=== PATIENT | female | born 1955 | race Caucasian/White ===

== ENCOUNTER → 2017-04-30 | Outpatient (CLI) | payer BC ==
--- NOTE | 2017-05-01 19:33 | Diagnostic Imaging Report ---
Bilateral screening mammogram 2D views with tomosynthesis The current study was also evaluated with a Computer Aided Detection (CAD) system. Indication: Screening. No current complaints stated on the questionnaire. COMPARISON: 05/02/16 FINDINGS: The breasts are composed of scattered fibroglandular densities. There are occasional benign-appearing calcifications seen. Allowing for technique and positional differences, no suspicious change is seen. IMPRESSION: No significant change. ACR BI-RADS Category 2: Benign findings. Result letter will be mailed to the patient. Note: At least 10% of breast cancer is not imaged by mammography. Dictated by: Dictated on workstation # [id number]
== END ==
LOC: RAD 09:38
PROVIDERS: ATTEND Nurse Practitioner
DX: Z12.31 Encounter for screening mammogram for malignant neoplasm of breast (principal)
CPT/HCPCS: 77067

== ENCOUNTER → 2018-05-31 | Outpatient (CLI) | payer BC ==
--- NOTE | 2018-05-31 16:21 | Diagnostic Imaging Report ---
EXAMINATION: Digital mammogram bilateral screening with CAD and 3D tomosynthesis. INDICATION: Screening. COMPARISON: This study is compared to the prior exams of 04/30/2017, 05/02/2016, and 04/01/2015. PERSONAL HISTORY: At this time, there are no current complaints. FINDINGS: There is a mild amount of fibroglandular tissue present in both breasts, similar to the prior exam. No primary or secondary sign of malignancy is noted. IMPRESSION: There is no radiographic evidence for malignancy. ACR BI-RADS Category 1: Negative. Result letter will be mailed to the patient. Note: At least 10% of breast cancer is not imaged by mammography. Dictated by: Dictated on workstation # [id number]
== END ==
LOC: RAD 07:41
PROVIDERS: ATTEND Nurse Practitioner
DX: Z12.31 Encounter for screening mammogram for malignant neoplasm of breast (principal)
CPT/HCPCS: 77067

== ENCOUNTER → 2019-06-02 | Outpatient (CLI) | payer BC ==
--- NOTE | 2019-06-02 10:24 | Diagnostic Imaging Report ---
INDICATION: Routine screening. COMPARISON: 05/31/2018 and 04/30/2017. TECHNIQUE: 2D and 3D bilateral screening mammography was performed with CAD. FINDINGS: Scattered fibroglandular densities are identified bilaterally. A circumscribed density in the upper right breast at anterior depth is noted with peripheral calcification. This has the appearance of an oil cyst. The left breast is unremarkable. No spiculated mass or malignant appearing microcalcifications are seen. The axillae are unremarkable. IMPRESSION: No mammographic features suspicious for malignancy are identified. ACR BI-RADS Category 2: Benign findings. Result letter will be mailed to the patient. Note: At least 10% of breast cancer is not imaged by mammography. Dictated by: Dictated on workstation # [id number]
== END ==
LOC: RAD 09:00
PROVIDERS: ATTEND Nurse Practitioner
DX: Z12.31 Encounter for screening mammogram for malignant neoplasm of breast (principal)
CPT/HCPCS: 77067

== ENCOUNTER 2020-02-23 14:48 | Outpatient (RCR) | payer BC ==
[2020-03-11] MEDS ORDERED: CETI10CA PO (07:58)
[2020-03-11] MEDS ORDERED: ESCI5TAB PO (07:58)
[2020-03-11] MEDS ORDERED: HYDR25TA4 PO (07:58)
[2020-03-11] MEDS ORDERED: ESTR1TAB24 PO (07:58)
[2020-03-11] MEDS ORDERED: LISI-556 PO (07:58)
[2020-03-11] MEDS ORDERED: APIX5TAB PO (07:58)
[2020-03-11] MEDS ORDERED: PANT40TA52 PO (07:58)
[2020-03-11] MEDS ORDERED: POTA10CA43 PO (07:58)
[2020-03-11] MEDS ORDERED: MAGN400T29 PO (07:58)
[2020-04-02] MEDS ORDERED: ESCI10TA55 PO (07:27)
== END 2020-05-23 | disposition home or self-care (01) ==
LOC: CARD 14:48
PROVIDERS: ATTEND Internal Medicine Interventional Cardiology
DX: I08.2 Rheumatic disorders of both aortic and tricuspid valves (principal); I10 Essential (primary) hypertension
CPT/HCPCS: 93306

== ENCOUNTER → 2020-03-04 | Outpatient (CLI) | payer BC ==
[~2020-03-04] VITALS: Ht 165 cm; Wt 92.0 kg
[~2020-03-04] MED LIST: CATHETER FLUSH 10 ML SYR IV PRN; REGADENOSON 0.4 MG/5 ML SYR (LEXISCAN) IV ONE
[2020-03-06 14:05] VITALS: BP 150/76
--- NOTE | 2020-03-06 14:05 | Cardiology Stress Test Report ---
Stress Test Report Type of NM Stress Test: Test Type: LEXISCAN 0.4MG/5ML Date of Procedure/Referring: Date of Procedure: Mar 04, 2020 PCP Shane Redman MD Admitting Physician Jane Renner MD Indications: Chest heaviness, syncope. Baseline Heart Rate: 61 Baseline Blood Pressure: Blood Pressure Systolic: 150 Blood Pressure Diastolic: 76 Baseline EKG: Baseline EKG: sinus rhythm Summary & Conclusion: Summary: The patient was brought to the stress lab after informed consent was taken. Stress test was performed according to the Lexiscan protocol. 0.4 mg of IV Lexiscan was given. Low-grade exercise was performed. Baseline EKG showed sinus rhythm at 61 BPM. Blood pressure 150/76 mmHg. Maximum heart rate of 69 bpm and blood pressure 162/78 mmHg. Patient did not have any chest pain, arrhythmias or ST segment changes during the stress test. 10.44 mCi of Myoview were given for rest imaging and 30.2 mCi of Myoview given for stress imaging. Transient ischemic dilatation score 1.05 , EF 76 percent. Normal wall motion. Moderate reversible anterior defect. Conclusion: Pharmacological stress test was negative for ischemia. Normal LV function with no wall motion abnormalities. Possible anterior ischemia. coronary angiography is recommended Shane REDMAN MD Mar 06, 2020 14:05
== END ==
LOC: CARD 07:39
PROVIDERS: ATTEND Internal Medicine Interventional Cardiology
DX: I10 Essential (primary) hypertension (principal)
CPT/HCPCS: 78452; 93017; A9502

== ENCOUNTER 2020-03-11 06:57 | Day surgery (SDC) | payer BC ==
[2020-03-11] VITALS (12 sets, daily range): BP systolic 93–156; BP diastolic 50–109
[~2020-03-11] VITALS: Ht 166 cm; Wt 92.0 kg
--- OUTSIDE RECORDS SUMMARY | 2020-03-11 07:03 | XMS REPORT | Continuity of Care Document ---
Author Organization Unknown Address Unknown Phone Unavailable Allergies Active Description Code Type Severity Reaction Onset Reported/Identified Relationship to Patient Clinical Status Yes NO KNOWN DRUG ALLERGIES UNKNOWN NO KNOWN DRUG ALLERG Yes NO KNOWN DRUG ALLERGIES UNKNOWN UNKNOWN Yes No Known Drug Allergies [id number] Drug Allergy Unknown N/A 03/04/2020 Medications Medication Packaging Start Date St op Date Route Dosage Sig MAGNESIUM OXIDE TAB 400 MG (MAG-OX) MG 10/13/2017 10/19/2017 [id number] LACTATED RINGERS 1000CC IV BAG INJ ml 10/15/2017 10/22/2017 CONTINUOUSEVERY 0 Hour ONDANSETRON VIAL INJ 4 MG/2CC (ZOFRAN 2CC VIAL) MG 08/11/2018 08/11/2018 PRN ONCE NORMAL SALINE 1000CC IV BAG INJ 0.9 % (NS 1000CC IV BAG) ml 08/11/2018 08/26/2018 CONTINUOUSEVERY 0 Hour POTASSIUM CL 20MEQ VIAL INJ 20 MEQ/10CC (KCL VIAL) MEQ 08/11/2018 08/11/2018 ONCE&0218 POTASSIUM CL 20MEQ VIAL INJ 20 MEQ/10CC (KCL VIAL) MEQ 08/11/2018 08/11/2018 ONCE&0253 POTASSIUM CHLORIDE TAB 20 MEQ (K-DUR) MEQ 08/11/2018 08/11/2018 ONCE&0305 Problems Date Dx Coded Attending Type Code Diagnosis Diagnosed By 04/05/2015 DANNIELLE EWING Ot V76.1 2 04/29/2015 DANNIELLE EWING Ot V76.1 2 05/02/2016 Ot V76.12 OTH SCREEN MAMMO- MALIGN NEOPLASM OF HERIBERTO 05/02/2016 Ot 793.80 UNS PEC ABNORMAL MAMMOGRAM 05/02/2016 Ot V76.12 OTH SCREEN MAMMO- MALIGN NEOPLASM OF HER[place]ERTO 05/02/2016 Ot 793.80 UNS PEC ABNORMAL MAMMOGRAM 05/02/2016 DANNIELLE EWING Ot V76.1 2 OTH SCREEN MAMMO-MALIGN NEOPLASM OF HERIBERTO 05/02/2016 DANNIELLE EWING GOLD BEATER Ot V76.1 2 OTH SCREEN MAMMO-MALIGN NEOPLASM OF [place]IBERTO 05/02/2016 DANNIELLE EWING GOLD BEATER Ot V76.1 2 OTH SCREEN MAMMO-MALIGN NEOPLASM OF HERIBERTO 05/02/2016 DANNIELLE EWING GOLD BEATER Ot Z12.3 1 ENCNTR SCREEN MAMMOGRAM FOR MALIGNANT NE 05/03/2016 DANNIELLE EWING GOLD BEATER Ot Z12.3 1 ENCNTR SCREEN MAMMOGRAM FOR MALIGNANT NE 05/10/2016 DANNIELLE EWING GOLD BEATER Ot Z12.3 1 ENCNTR SCREEN MAMMOGRAM FOR MALIGNANT NE 04/30/2017 Ot 793.80 UNS PEC ABNORMAL MAMMOGRAM 04/30/2017 Ot V76.12 OTH SCREEN MAMMO- MALIGN NEOPLASM OF [place]IBERTO 04/30/2017 Ot 793.80 UNS PEC ABNORMAL MAMMOGRAM 04/30/2017 DANNIELLE EWING GOLD BEATER Ot V76.1 2 OTH SCREEN MAMMO-MALIGN NEOPLASM OF [place]IBERTO 04/30/2017 DANNIELLE EWING GOLD BEATER Ot V76.1 2 OTH SCREEN MAMMO-MALIGN NEOPLASM OF HERIBERTO 04/30/2017 DANNIELLE EWING GOLD BEATER Ot V76.1 2 OTH SCREEN MAMMO-MALIGN NEOPLASM OF [place]O 04/30/2017 DANNIELLE EWING GOLD BEATER Ot Z12.3 1 ENCNTR SCREEN MAMMOGRAM FOR MALIGNANT NE 05/10/2017 DANNIELLE EWING GOLD BEATER Ot Z12.3 1 ENCNTR SCREEN MAMMOGRAM FOR MALIGNANT NE 09/26/2017 A 401.1 LISSETTE GN ESSENTIAL HYPERTENSION 09/26/2017 W 709.9 UNSP ECIFIED DISORDER OF SKIN AND SUBCUTANEOUS TISSUE 09/26/2017 A I10 ESSENT IAL (PRIMARY) HYPERTENSION 09/26/2017 W L98.9 DISO RDER OF THE SKIN AND SUBCUTANEOUS TISSUE, UNSPECIFIED 10/15/2017 Dillon Valdez W 455.0 INTERNAL HEMORRHOIDS WITHOUT MENTION OF COMPLICATION 10/15/2017 Dillon Valdez A 530.81 10/15/2017 Dillon Valdez W 535.10 10/15/2017 Dillon Valdez W 552.3 10/15/2017 Dillon Valdez W 562.12 DIVERTICULOSIS OF COLON WITH HEMORRHAGE 10/15/2017 Dillon Valdez 697.0 LICHEN PLANUS 10/15/2017 Dillon Valdez K21.0 GASTRO- ESOPHAGEAL REFLUX DISEASE WITH ESOPHAGITIS 10/15/2017 Dillon Valdez K29.30 CHRONIC SUPERFICIAL GASTRITIS WITHOUT BLEEDING 10/15/2017 Dillon Valdez K44.9 DIAPHRAGMATIC HERNIA WITHOUT OBSTRUCTION OR GANGRENE 10/15/2017 Dillon Valdez K57.30 DVRTCLOS OF LG INT W/O PERFORATION OR ABSCESS W/O BLEEDING 10/15/2017 Dillon Valdez K64.1 SECOND DEGREE HEMORRHOIDS 10/15/2017 Dillon Valdez L43.8 OTHER LICHEN PLANUS 10/15/2017 Dillon Valdez V76.51 SCREENING FOR MALIGNANT NEOPLASMS OF COLON 10/15/2017 Dillon Valdez Z12.11 ENCOUNTER FOR SCREENING FOR MALIGNANT NEOPLASM OF COLON 05/09/2018 W 296.90 UNS PECIFIED EPISODIC MOOD DISORDER 05/09/2018 A 401.0 EVELIO GNANT ESSENTIAL HYPERTENSION 05/09/2018 W F39 UNSPEC IFIED MOOD [AFFECTIVE] DISORDER 05/09/2018 A I10 ESSENT IAL (PRIMARY) HYPERTENSION 06/03/2018 DANNIELLE EWING Ot Z12.3 1 ENCNTR SCREEN MAMMOGRAM FOR MALIGNANT NE 06/03/2018 DANNIELLE EWING Ot Z12.3 1 ENCNTR SCREEN MAMMOGRAM FOR MALIGNANT NE 08/11/2018 PRABHJOT BENÍTEZ W 008.8 INTESTINAL INFECTION DUE TO OTHER ORGANISM, NOT ELSEWHERE CLASSIFIED 08/11/2018 LEISURE, PRABHJOT W 780.2 SYNCOPE AND COLLAPSE 08/11/2018 LEISURE, SPARKLEA W 920 CONTUSION OF FACE, SCALP, AND NECK EXCEPT EYE(S) 08/11/2018 LEISURE, PRABHJOT Osorio A08.0 ROTAVIRAL ENTERITIS 08/11/2018 LEISURE, PRABHJOT W R55 SYNCOPE AND COLLAPSE 08/11/2018 LEISURE, PRABHJOT W S00.83 CONTUSION OF OTHER PART OF HEAD 08/11/2018 LEISURE, PRABHJOT A 008.8 INTESTINAL INFECTION DUE TO OTHER ORGANISM, NOT ELSEWHERE CLASSIFIED 08/11/2018 LEISURE, PRABHJOT W 780.2 SYNCOPE AND COLLAPSE 08/11/2018 LEISURE, SPARKLEA W 920 CONTUSION OF FACE, SCALP, AND NECK EXCEPT EYE(S) 08/11/2018 PRABHJOT BENÍTEZ A08.4 VIRAL INTESTINAL INFECTION, UNSPECIFIED 08/11/2018 PRABHJOT BENÍTEZ R55 SYNCOPE AND COLLAPSE 08/11/2018 PRABHJOT BENÍTEZ S00.83 CONTUSION OF OTHER PART OF HEAD 08/11/2018 PRABHJOT BENÍTEZ S00.83 XA CONTUSION OF OTHER PART OF HEAD, INITIAL ENCOUNTER 06/06/2019 DANNIELLE EWING Ot Z12.3 1 ENCNTR SCREEN MAMMOGRAM FOR MALIGNANT NE 06/23/2019 DANNIELLE EWING Ot Z12.3 1 ENCNTR SCREEN MAMMOGRAM FOR MALIGNANT NE 03/02/2020 ANIKA CHICAS, Shane MANLEY Ot 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 Results Test Result Range Thyroid Stimulating Hormone - 04/07/17 0 8:46 TSH 1.79 mIU/mL 0.32-5.00 Comprehensive Metabolic Panel - 10/11/17 13:48 Albumin 3.9 g/dL 3.6-5.1 ALP 87 U/L 35-130 ALT 15 U/L 6-45 Anion Gap 12 6-14 AST 16 U/L 2-40 BUN 15 mg/dL 5-25 Calcium 9.4 mg/dL 8.3-10.4 Chloride 98 mmol/L 95-114 CO2 32 mEq/L 22-33 Creat 0.78 mg/dL 0.50-1.50 eGFR 75 mL/min/1.73m2 >59 Globulin 2.9 g/dL 2.3-3.5 Glucose 97 mg/dL 70-110 Osmo 286 280-295 Potassium 3.5 mmol/L 3.5-5.3 Sodium 138 mmol/L 134-148 TBil 0.4 mg/dL 0.2-1.2 TP 6.8 g/dL 6.0-8.3 MRSA Screen - 10/11/17 13:48 FINAL CULTURE RESULTS MRSA Negative Nasal Culture MEDIA PLATED Setup at 14:21 on 10/11/2017 Surgical Pathology - 10/15/17 11:21 Surg Path Sent to [facility] Hemoglobin A1C - 05/11/18 08:34 % A1C 5.30 % 5.40-6.60 AvGlu 111 mg/dL 70-110 Troponin I - 08/11/18 01:38 Troponin 0.021 ng/mL 0.000-0.400 Magnesium - 08/11/18 01:38 Mg++ 2.1 mg/dL 1.6-2.6 Lipase - 08/11/18 01:38 Lipase 11 U/L 7-59 Comprehensive Metabolic Panel - 08/11/18 01:38 Albumin 4.3 g/dL 3.6-5.1 ALP 62 U/L 35-130 ALT 18 U/L 6-45 Anion Gap 16 6-14 AST 20 U/L 2-40 BUN 15 mg/dL 5-25 Calcium 9.3 mg/dL 8.3-10.4 Chloride 100 mmol/L 95-114 CO2 28 mEq/L 22-33 Creat 1.01 mg/dL 0.50-1.50 eGFR 56 mL/min/1.73m2 >59 Globulin 3.5 g/dL 2.3-3.5 Glucose 166 mg/dL 70-110 Osmo 295 280-295 Potassium 3.0 mmol/L 3.5-5.3 Sodium 141 mmol/L 134-148 TBil 0.7 mg/dL 0.2-1.2 TP 7.8 g/dL 6.0-8.3 Thyroid Stimulating Hormone - 04/12/19 1 0:18 TSH 1.40 mIU/mL 0.32-5.00 Urinalysis - 04/14/19 07:57 Icotest N/A Negative Urine Volume Urine Volume Sufficient (10mL) Urine-Appearance Clear Clear Urine-Bilirubin Negative Negative Urine-Blood Trace Negative Urine-Color Yellow Colorless-Lt. [place] ow Urine-Glucose Negative Negative Urine-Ketones Negative Negative Urine-Leukocytes Negative Negative Urine-Nitrite Negative Negative Urine-pH 6.0 5-8.5 Urine-Protein Negative Negative Urine-RBC 2-5/HPF Urine-Specific [place] 1.020 1.000-1 .030 Urine-WBC Rare/HPF Urobilinogen 0.2 0.2-1.0 Thyroid Stimulating Hormone - 05/31/20 0 9:16 TSH 1.33 mIU/mL 0.32-5.00 Urinalysis - 01/18/20 09:16 Icotest N/A Negative Urine Volume Urine Volume Sufficient (10mL) Urine-Appearance Clear Clear Urine-Bacteria Trace Urine-Bilirubin Negative Negative Urine-Blood Trace-lysed Negative Urine-Color Yellow Colorless-[place] ow Urine-Epithelial Cells 5-10/HPF Urine-Glucose Negative Negative Urine-Ketones Negative Negative Urine-Leukocytes Negative Negative Urine-Nitrite Negative Negative Urine-pH 7.0 5-8.5 Urine-Protein Negative Negative Urine-RBC Rare/HPF Urine-Specific [place] 1.020 1.000-1 .030 Urine-WBC Negative Urobilinogen 0.2 E.U./dL 0.2-1.0 Encounters ACCT No. Visit Date/Time Discharge Status Pt. Type Provider Facility Loc./Unit Complaint [id number] 01/18/2020 09:14:00 01/18/2020 23:59 :00 DIS Outpatient Jane Renner [id number] 01/15/2020 15:10:00 01/15/2020 23:59 :00 DIS Outpatient Odilia Rennera [id number] 07/02/2019 14:24:00 07/02/2019 23:59: 00 DIS Outpatient Jane Renner [id number] 05/17/2019 15:57:00 05/17/2019 23:59: 00 DIS Outpatient UNLISTED, UNLISTED [id number] 04/14/2019 07:56:00 04/14/2019 23:59: 00 DIS Outpatient Odilia Rennera [id number] 04/12/2019 10:17:00 04/12/2019 23:59: 00 DIS Outpatient Jane Renner [id number] 08/11/2018 01:17:00 08/11/2018 03:55: 00 DIS Outpatient [facility], PRABHJOT [facility] ER [id number] 05/25/2018 14:17:00 05/25/2018 23:59: 00 DIS Outpatient SELF, JEFF [id number] 05/13/2018 12:58:00 05/13/2018 23:59: 00 DIS Outpatient ZurdoJane [id number] 05/11/2018 08:34:00 05/11/2018 23:59: 00 DIS Outpatient Jane Renner [id number] 10/15/2017 09:15:00 10/15/2017 12:15: 00 DIS Outpatient Dillon Valdez [id number] 10/11/2017 13:29:00 10/11/2017 23:59: 00 DIS Outpatient Dillon Valdez [id number] 05/26/2017 13:17:00 05/26/2017 23:59: 00 DIS Outpatient JEFF CARRASCO [id number] 04/07/2017 08:43:00 04/07/2017 23:59: 00 DIS Outpatient Jane Renner [id number] 05/09/2018 11:10:00 Document Registration [id number] 10/11/2017 14:23:30 Document Registration [id number] 09/26/2017 11:33:00 Document Registration [id number] 03/04/2020 07:39:00 23:59:59 CLS Outpatient Shane DONALDSON MD [facility] CARD CHEST HEAVINESS,SYNCOPE AND COLLAPSE,PALPITATIONS [id number] 02/23/2020 14:48:00 23:59:59 CLS Outpatient Shane DONALDSON MD [facility] CARD CHEST HEAVINESS,SYNCOPE AND COLLAPSE,PALPITATIONS [id number] 06/02/2019 09:00:00 23:59:59 CLS Outpatient DANNIELLE EWING [facility] RAD SCREENING [id number] 03/27/2019 16:12:00 019 23:59:59 CLS Preadmit DANNIELLE EWING [facility] RAD SCREENING [id number] 05/31/2018 07:41:00 018 23:59:59 CLS Outpatient DANNIELLE EWING [facility] RAD SCREENING [id number] 04/30/2017 09:38:00 017 23:59:59 CLS Outpatient DANNIELLE EWING [facility] RAD SCREENING [id number] 05/02/2016 08:40:00 016 23:59:59 CLS Outpatient DANNIELLE EWING GOLD BEATER [facility] RAD SCREENING [id number] 04/01/2015 09:11:00 015 23:59:59 CLS Outpatient GILDARDODANNIELLEP [facility] RAD SCREENING [id number] 04/03/2014 10:13:00 014 23:59:59 CLS Outpatient GILDARDODANNIELLE Jo RITCHIE [facility] RAD SCREENING [id number] 03/24/2013 09:16:00 013 23:59:59 CLS Outpatient GILDARDODANNIELLE Jo RITCHIE [facility] RAD SCREENING [id number] 03/11/2020 06:57:[address] Outpatient Shane DONALDSON MD [facility] CATH ABNORMAL STRESS TEST [id number] 04/02/2012 12:35:00 Document Registration [id number] 03/22/2012 08:09:00 Document Registration [id number] 03/24/2011 07:56:00 Document Registration
[2020-03-11] MEDS ORDERED: HEParin (CATH LAB) 2,000 ML IV ONE (07:13)
[2020-03-11] MEDS ORDERED: NS IV 1000 ML 1,000 ML ONE (07:13)
[2020-03-11] MEDS ORDERED: LIDOCAINE 1% INJ 20 ML 20 ML VIAL ONE (07:13)
[2020-03-11] MEDS ORDERED: NS IV 1000 ML 1,000 ML IV SCH ×2 (07:15→08:52)
[2020-03-11 07:38] LABS: MEAN PLATELET VOLUME 10.8 FL (7.4-10.4); RED CELL DISTRIBUTION WIDTH 12.7 % (10.0-14.5); WHITE BLOOD COUNT 7.2 10^3/uL (4.3-11.0)
[2020-03-11 07:49] LABS: ALBUMIN 4.2 GM/DL (3.2-4.5); POTASSIUM 3.1 MMOL/L (3.6-5.0)
[2020-03-11 07:50] LABS: INR 1.2 (0.8-1.4); PROTHROMBIN TIME PATIENT 15.4 SEC (12.2-14.7)
[2020-03-11 07:51] LABS: CALCIUM 9.1 MG/DL (8.5-10.1)
[2020-03-11 07:52] LABS: TOTAL PROTEIN 7.4 GM/DL (6.4-8.2)
[2020-03-11 07:54] LABS: BILIRUBIN,TOTAL 1.2 MG/DL (0.1-1.0)
[2020-03-11 07:55] LABS: CREATININE SERUM 1.03 MG/DL (0.60-1.30)
[2020-03-11] MEDS ORDERED: POTA10CA43 PO (07:58)
[2020-03-11] MEDS ORDERED: LISI-556 PO (07:58)
[2020-03-11] MEDS ORDERED: APIX5TAB PO (07:58)
[2020-03-11] MEDS ORDERED: ESCI5TAB PO (07:58)
[2020-03-11] MEDS ORDERED: CETI10CA PO (07:58)
[2020-03-11] MEDS ORDERED: ESTR1TAB24 PO (07:58)
[2020-03-11] MEDS ORDERED: MAGN400T29 PO (07:58)
[2020-03-11] MEDS ORDERED: HYDR25TA4 PO (07:58)
[2020-03-11] MEDS ORDERED: PANT40TA3 PO (07:58)
[2020-03-11] MEDS ORDERED: VERAPAMIL 5 MG/2 ML (CALAN) VIAL IV ONE (08:00)
[2020-03-11] MEDS ORDERED: NITRO DRIP 25000 MCG/D5W 250 ML IV ONE (08:00)
[2020-03-11] MEDS ORDERED: fentaNYL INJECTION 100 MCG/2 ML AMP ONE (08:00)
[2020-03-11] MEDS ORDERED: HEParin 1000 UNIT/ML (10ML VIAL) FOR BOLUS ONE (08:00)
[2020-03-11] MEDS ORDERED: MIDAZOLAM 5 MG/5 ML (VERSED) VIAL ONE (08:00)
--- NOTE | 2020-03-11 08:52 | Coronary Angiography Report ---
Coronary Angiography Report DATE OF PROCEDURE: 03/11/20 INDICATION: Abnormal nuclear stress test, new onset atrial fibrillation, second- degree heart block. PREOPERATIVE DIAGNOSIS: Abnormal nuclear stress test, new onset atrial fibrillation, second-degree heart block. POSTOPERATIVE DIAGNOSIS: Patent epicardial coronary arteries. HISTORY: This is a 64-year-old lady with abnormal nuclear stress test, new onset atrial fibrillation, second-degree heart block. Therefore, the patient was scheduled for coronary angiography. PROCEDURES PERFORMED: 1.Coronary angiography. 2.Left heart catheterization. 3. Aortic arch angiogram, medical necessity: To assess and rule out aortic aneurysm and dissection in a patient with chest pain and patent epicardial coronary arteries. COMPLICATIONS: None. SPECIMENS: None. ESTIMATED BLOOD LOSS: 10 mL ANESTHESIA: Conscious sedation ANTICOAGULATION: IV heparin CONTRAST: 55 ML. FLUOROSCOPY: 3.8 minutes. FLOUROSCOPY DOSE: 301 mgy. PROCEDURE DETAILS: The patient is a 64 female and was brought to the analytical lab technician after informed consent was taken. All the risks and complications were explained in detail; this included the risk of bleeding, vascular damage, stroke, [place] and even . The patient was draped and prepped in the usual sterile fashion. Access was gained in the right radial artery with a 6 [place] sheath. Coronary angiography and left heart catheterization was performed with the [place] catheter. FINDINGS: 1.Left main: Patent. 2.LAD: Patent. 3.Left circumflex artery: patent. 4.RCA: Patent. 5.Left heart catheterization: LV pressure 104/10 mmHg. LVEDP 19 mmHg. Aortic pressure 109/60 mmHg. Normal LV function with no wall motion abnormalities. No gradient across the aortic valve. 6. Aortic arch angiogram: No evidence of ascending thoracic aorta aneurysm or dissection. Patent proximal segments of the great arteries. CONCLUSIONS: 1. Patent epicardial coronary arteries. 2. Elevated LVEDP suggest diastolic dysfunction. 3. Continue primary prevention therapies. Cleveland Redman MD, FACP, FACC, [facility] Interventional Cardiology Shane REDMAN MD Mar 11, 2020 08:52
--- NOTE | 2020-03-11 08:52 | Cardiac Procedure Note-CS/ASA ---
Pre-Procedure Note Pre-Op Procedure Note H&P Reviewed The H&P was reviewed, patient examined and no changes noted. Date H&P Reviewed: Mar 11, 2020 Time H&P Reviewed: 08:10 Conscious Sedation Pre-Proced Time 08:10 ASA Score 2 For ASA 3 and 4: Consider anesthesia and medical clearance. Also, for patients with a history of failed moderate sedation consider anesthesia. Airway Lungs Heart ASA score ASA 1: a normal healthy patient ASA 2: a patient with a mild systemic disease (mid diabetes, controlled hypertension, obesity ASA 3: a patient with a severe systemic disease that limits activity (angina, COPD, prior Myocardial infarction) ASA 4: a patient with an incapacitating disease that is a constant threat to life (CHF, renal failure) ASA 5: a moribund patient not expected to survive 24 hrs. (ruptured aneurysm) ASA 6: a declared brain- patient whose organs are being harvested. For emergent operations, add the letter E after the classification Mallampati Classification Grade 1 Sedation Plan Analgesia, Amnesia, Plan communicated to team members, Discussed options with patient/fam, Discussed risks with patient/fam The patient is an appropriate candidate to undergo the planned procedure, sedation, and anesthesia. The patient immediately re-assessed prior to indication. Shane DONALDSON MD Mar 11, 2020 08:52
--- NOTE | 2020-03-11 08:57 | Discharge Inst-Post CATH ---
Discharge Inst-CATH/EP Problems Reviewed?: Yes Final Diagnosis Patent Epicardial Coronary Arteries Post Cardiac Cath/EP D/C Inst Follow Up/Plan Dr Redman in 2-3 weeks <b>CARDIAC CATH/EP PROCEDURE DISCHARGE INSTRUCTIONS</b> ACTIVITY * Go Home directly and rest. * Limit activity of the leg (or wrist if it was used) for 7 days including aerobics, swimming, jogging, bicycling, etc. * Restrict stair-climbing for 7 days if possible, if not, climb up with your non-cath leg, then bring together on the same step. * Avoid lifting, pushing, pulling or excessive movement of the affected extremity for 7 days. * Customary sexual activity may be resumed after 2 days-use caution not to use a position that strains or causes pain to the affected extremity. * No driving for 24 hours. * NO SMOKING. * Avoid straining for bowel movements for 7 days. * Gentle walking on level ground is allowed. * Returning to work will depend on the type of procedure and the results. Your doctor will discuss this with you. CALL YOUR DOCTOR FOR ANY OF THE FOLLOWING: *If bleeding from the puncture site occurs- Apply gentle pressure to site with clean cloth and call your doctor or EMS. * If a knot or lump forms under the skin, increases in size, or causes pain. * If bruising appears to be worsening or moving further down your leg instead of disappearing. * Temperature above 101 F. CARE OF YOUR GROIN INCISION; * Bruising or purple discoloration of the skin near the puncture site is common. * You may shower only, no bathtub bathing for 5 days. Be careful to avoid slipping as your leg may feel stiff. * If a closure device was used on your femoral artery, please see the attached guide regarding care of the device and your leg. * Leave dressing on FOR 24 hours. CARE OF YOUR WRIST INCISION; * Bruising or purple discoloration of the skin near the puncture site is common. * You may shower. * DO NOT submerge wrist. * Leave dressing on FOR 24 hours. Shane REDMAN MD Mar 11, 2020 08:57
[2020-03-11] MEDS ORDERED: PATIENT MAY USE OWN MEDS, ALL PO SCH (09:00)
--- NOTE | 2020-03-11 09:18 | Cardiology Discharge Summary ---
Diagnosis/Chief Complaint Date of Admission 03/11/2020 Date of Discharge 03/11/2020 Admission Diagnosis Abnormal nuclear stress test, new onset atrial fibrillation, second-degree heart block Final/Discharge Diagnosis Patent epicardial coronary arteries. Chief Complaint/HPI Chief Complaint/HPI This is a 64-year-old lady with new onset atrial fibrillation, abnormal nuclear stress test, second-degree heart block. Coronary angiography is recommended. Discharge Summary Procedures Coronary angiography shows patent epicardial coronary arteries. No evidence of aneurysm or dissection in the ascending aorta. Normal LV function with mildly elevated LVEDP. Discharge Physical Examination Normal cardiovascular examination Hospital Course Was the Problem List Reviewed?: Yes Unremarkable. Pending Labs Laboratory Tests 03/11/20 07:31: White Blood Count 7.2, Red Blood Count 4.41, Hemoglobin 14.0, Hematocrit 42, Mean Corpuscular Volume 94, Mean Corpuscular Hemoglobin 32, Mean Corpuscular Hemoglobin Concent 34, Red Cell Distribution Width 12.7, Platelet Count 280, Mean Platelet Volume 10.8, Prothrombin Time 15.4, INR Comment 1.2, Activated Partial Thromboplast Time 39, Sodium Level 139, Potassium Level 3.1, Chloride Level 100, Carbon Dioxide Level 28, Anion Gap 11, Blood Urea Nitrogen 15, Creatinine 1.03, Estimat Glomerular Filtration Rate 54, BUN/Creatinine Ratio 15, Glucose Level 107, Calcium Level 9.1, Corrected Calcium 8.9, Total Bilirubin 1.2, Aspartate Amino Transf (AST/SGOT) 21, Alanine Aminotransferase (ALT/SGPT) 18, Alkaline Phosphatase 83, Total Protein 7.4, Albumin 4.2, Triglycerides Level 139, Cholesterol Level [Pending], LDL Cholesterol Direct [Pending], VLDL Cholesterol 28, HDL Cholesterol 44 Discussion & Recommendations Discussion Discussed at length with the patient as well as the over the phone. Patient will continue Eliquis. On heart monitor patient had Mobitz type I second-degree heart block however the patient adamantly denies dizziness, near- syncope, syncope. The patient does have fatigue. I requested her to seek immediate medical attention if she has dizziness, near-syncope or syncope, since that will be an indication for a dual-chamber permanent pacemaker. Follow up appt.: Dr. Redman in 2-3 weeks. Dicharge Diet: Regular Diet Activity as Tolerated: Yes Home Medications Reviewed patient Home Medication Reconciliation performed by pharmacy medication reconciliations central supply technician supervisor and/or nursing. Patients Allergies have been reviewed. Discharge Home Medications: Reviewed and agree with Discharge Medication list on patient's Discharge Instruction sheet Condition at discharge Stable. Instructions to patient/family Dr Redman in 2-3 weeks Shane REDMAN MD Mar 11, 2020 09:18
== END 2020-03-11 12:15 | disposition home or self-care (01) ==
LOC: CATH 06:57 → SDC 08:55 → CATH 12:15
PROVIDERS: ATTEND Internal Medicine Interventional Cardiology
DX: I25.10 Atherosclerotic heart disease of native coronary artery without angina pectoris (principal); I44.1 Atrioventricular block, second degree; I48.91 Unspecified atrial fibrillation; I10 Essential (primary) hypertension; F32.9 Major depressive disorder, single episode, unspecified; R53.82 Chronic fatigue, unspecified; E66.9 Obesity, unspecified; Z68.33 Body mass index [BMI] 33.0-33.9, adult; Z79.82 Long term (current) use of aspirin; Z79.899 Other long term (current) drug therapy; Z80.3 Family history of malignant neoplasm of breast; Z82.3 Family history of stroke
CPT/HCPCS: 36221; 80053; 80061; 85027; 85610; 85730; 87081; 93458; C1894; 36415

== ENCOUNTER 2020-04-02 07:05 | Day surgery (SDC) | payer BC ==
[~2020-04-02] VITALS: Ht 165 cm; Wt 91.0 kg
[2020-04-02] VITALS (17 sets, daily range): BP systolic 114–155; BP diastolic 56–97
[~2020-04-02 07:05] MED LIST changes: +APIX5TAB PO; -CATHETER FLUSH 10 ML SYR IV PRN; +CETI10CA PO; +ESCI5TAB PO; +ESTR1TAB24 PO; +HEParin (CATH LAB) 2,000 ML IV ONE; +HYDR25TA4 PO; +LIDOCAINE 1% INJ 20 ML 20 ML VIAL ONE; +LISI-556 PO; +MAGN400T29 PO; +NS IV 1000 ML 1,000 ML ONE; +PANT40TA3 PO; +POTA10CA43 PO; -REGADENOSON 0.4 MG/5 ML SYR (LEXISCAN) IV ONE
[2020-04-02] MEDS ORDERED: NS IV 1000 ML 1,000 ML IV SCH (07:06)
[2020-04-02] MEDS ORDERED: ISOPROTERENOL 0.2 MG/D5W 50 ML IV ONE (07:15)
[2020-04-02] MEDS ORDERED: ESCI10TA55 PO (07:27)
[2020-04-02 07:29] LABS: HEMOGLOBIN 14.1 G/DL (11.5-16.0); MEAN PLATELET VOLUME 10.8 FL (7.4-10.4); RED CELL DISTRIBUTION WIDTH 12.7 % (10.0-14.5); WHITE BLOOD COUNT 7.8 10^3/uL (4.3-11.0)
[2020-04-02 07:40] LABS: INR 1.3 (0.8-1.4); PROTHROMBIN TIME PATIENT 16.3 SEC (12.2-14.7)
[2020-04-02 07:48] LABS: ALBUMIN 4.2 GM/DL (3.2-4.5); BILIRUBIN,TOTAL 1.1 MG/DL (0.1-1.0); CALCIUM 9.4 MG/DL (8.5-10.1); CREATININE SERUM 1.08 MG/DL (0.60-1.30); POTASSIUM 3.2 MMOL/L (3.6-5.0); TOTAL PROTEIN 7.5 GM/DL (6.4-8.2)
[2020-04-02] MEDS ORDERED: fentaNYL INJECTION 100 MCG/2 ML AMP ONE (07:50)
[2020-04-02] MEDS ORDERED: MIDAZOLAM 2 MG/2 ML (VERSED) VIAL ONE (07:50)
[2020-04-02] MEDS ORDERED: LIDOCAINE PF 1% 2 ML AMP ONE (07:51)
[2020-04-02] MEDS ORDERED: proPOfol 200 MG/20 ML (DIPRIVAN) VIAL IV ONE ×3 (07:51→10:51)
[2020-04-02] MEDS ORDERED: ONDANSETRON 4 MG/2 ML (SDV) Z0FRAN ONE (07:59)
[2020-04-02] MEDS ORDERED: SEVOFLURANE (ULTANE) 15 ML INHAL SOLN ONE (07:59)
[2020-04-02] MEDS ORDERED: PROPOFOL DRIP (ICU) 100 ML IV ONE ×2 (08:23→09:49)
[2020-04-02] MEDS ORDERED: PHENYLEPHRINE 100 MCG/ML 10 ML (ANESTHESIA) SYR ONE (08:34)
[2020-04-02] MEDS ORDERED: LACTATED RINGERS 1,000 ML IV ONE ×2 (08:36→11:16)
[2020-04-02] MEDS ORDERED: DIGOXIN 0.25 MG/ML (LANOXIN) 2 ML AMP ONE (11:16)
--- NOTE | 2020-04-02 11:43 | Electrophysiology Procedure ---
EP Procedure Typical atrial flutter ablation. DATE OF SERVICE:04/02/20 CARDIAC DESIGN AND SALES CONSULTANT: Cleveland Redman MD, [facility] INDICATION: Typical atrial flutter, paroxysmal atrial fibrillation PREOPERATIVE DIAGNOSIS:Typical atrial flutter, paroxysmal atrial fibrillation POSTOPERATIVE DIAGNOSES: Successful typical atrial flutter ablation. Implantabl e loop recorder for long-term surveillance of paroxysmal atrial fibrillation. HISTORY: This is a 64-year-old lady with history of typical atrial flutter and paroxysmal atrial fibrillation. The patient is planned for comprehensive EP study and ablation. PROCEDURE PERFORMED: 1. Comprehensive EP study with induction. 2. Fluoroscopy. 3.Left atrial pacing and recording. 4. Drug infusion. 5. Ablation of typical atrial flutter. 6. Comprehensive 3D mapping with the carto system. 7. Implantable loop recorder placement. COMPLICATION: None. ESTIMATED BLOOD LOSS: 10 mL. CONTRAST USED: None. FLUOROSCOPY TIME: 5.8 minutes. FLUOROSCOPY DOSE: 48 mgy. SPECIMENS: None. ANESTHESIA: Done by our anesthesia colleagues. ANTICOAGULATION: On uninterrupted Eliquis therapy. PROCEDURE IN DETAIL: After informed consent was taken, the patient was brought to the EP lab. Anesthesia was provided by our anesthesia colleagues. The patient was draped and prepped in the usual sterile fashion. The patient presented to the EP lab in sinus rhythm. Access was gained in the right femoral vein with a 6-Zimbabwean and an 8-Zimbabwean sheath. Left access in left femoral vein was gained with 5-Zimbabwean and 6-Zimbabwean sheath respectively. High right atrial catheter was an ablation catheter, right ventricular catheter was placed, his catheter and the CS catheter were also placed. A comprehensive EP study was done including a CS pacing. Typical atrial flutter was not induced with rapid atrial pacing with and without Isuprel infusion. A 3D electroanatomic mapping was donewith the carto system. Ablation was performed in the cavotricuspid isthmus.CS pacing and pacing from the ablation catheter at different positions on the lateral side of the ablation line were used to verify bidirectional block. We then waited for 30 minutes and rechecked and confirmed bidirectional block.Isuprel was given post-procedure, however, we could not induce atrial flutter. The patient was draped and prepped in the usual sterilized pattern for an implantable loop recorder. A OpenROV implantable loop recorder was placed in the left sternal area and the fourth intercostal space. The patienttolerated the procedure well and did not have any complication. The patientleft the lab in sinus rhythm. Total ablation time was 1038 seconds. MEASUREMENTS/EP STUDY: AA interval 1087, AH interval 170 ms, HV interval 69 ms, MD interval 245 ms, QRS duration 69 ms, QT interval 459 ms, R-R interval 1152 ms, AV Wenckebach when pacing at 800 ms, Retrograde Wenckebach when pacing at 900 ms, AV logan ERP was 900/530 ms, Possible dual AV logan physiology., Left atrial pacing and recording did not demonstrate any clear left-sided bypass tract. No tachycardia induction. PLAN: The patient will be observed overnight and will be discharged home tomorrow with precise followup instructions. Cleveland Redman MD, [facility] Cardiac Electrophysiology Shane REDMAN MD Apr 02, 2020 11:43
[2020-04-02] MEDS ORDERED: PATIENT MAY USE OWN MEDS, ALL PO SCH (11:45)
[2020-04-02] MEDS ORDERED: fentaNYL INJECTION 100 MCG/2 ML AMP IVP ONE (12:15)
--- NOTE | 2020-04-02 12:41 | NUR ---
PT ARRIVED WITH MANAGER MARKETING SALES STAFF. SHE IS DROWSY BUT AWAKENS EASILY. IS ORIENTED X4 AND DENIES PAIN AT THIS TIME. BILATERAL GROINS ASSESSED AND ARE BENIGN. WILL MONITOR.
[2020-04-02] MEDS: NS IV 1000 ML 1,000 ML IV SCH ×2 (14:40→21:49)
[2020-04-02] MEDS ORDERED: fentaNYL INJECTION 100 MCG/2 ML AMP IVP PRN (16:30)
[2020-04-02] MEDS ORDERED: KCL 10 MEQ TAB (MICRO K) PO SCH (21:00)
[2020-04-02] MEDS ORDERED: APIXABAN 5 MG (ELIQUIS) TABLET PO SCH (21:00)
[2020-04-02] MEDS ORDERED: ceTIRizine 10 MG (ZyrTEC) TAB NON-FORMULARY PO SCH (21:00)
[2020-04-02] MEDS ORDERED: HYDROCHLOROTHIAZIDE 25 MG (HCTZ) TAB PO SCH (21:00)
[2020-04-02] MEDS ORDERED: PANTOPRAZOLE 40 MG (PROTONIX) TAB PO SCH (21:00)
[2020-04-02] MEDS ORDERED: lisINopril 5 MG (PRINIVIL) TABLET PO SCH (21:00)
[2020-04-02] MEDS: APIXABAN 5 MG (ELIQUIS) TABLET PO SCH (21:53)
[2020-04-02] MEDS: ESCITALOPRAM 10 MG TABLET PO SCH ×2 (21:56→21:58)
[2020-04-03] VITALS (13 sets, daily range): BP systolic 89–122; BP diastolic 39–68
[2020-04-03 04:13] LABS: HEMOGLOBIN 11.6 G/DL (11.5-16.0); RED CELL DISTRIBUTION WIDTH 12.3 % (10.0-14.5); WHITE BLOOD COUNT 8.3 10^3/uL (4.3-11.0)
[2020-04-03 04:30] LABS: CHLORIDE 103 MMOL/L (98-107); POTASSIUM 3.7 MMOL/L (3.6-5.0); SODIUM 138 MMOL/L (135-145)
[2020-04-03 04:31] LABS: CALCIUM 7.8 MG/DL (8.5-10.1)
[2020-04-03 04:32] LABS: GLUCOSE 102 MG/DL (70-105)
[2020-04-03 04:33] LABS: CARBON DIOXIDE 27 MMOL/L (21-32)
[2020-04-03 04:36] LABS: BUN/CREATININE RATIO 18; GFR ESTIMATED > 60
[2020-04-03] MEDS: NS IV 1000 ML 1,000 ML IV SCH (07:26)
[2020-04-03] MEDS ORDERED: KCL 10 MEQ TAB (MICRO K) PO SCH (08:00)
--- NOTE | 2020-04-03 08:00 | NUR ---
Pt ambulated x2 around ICU unit with stand-by only, no difficulties. Groin sites unchanged.
[2020-04-03] MEDS: APIXABAN 5 MG (ELIQUIS) TABLET PO SCH (08:21)
[2020-04-03] MEDS ORDERED: NON-FORMULARY MEDICATION 1 EA EA (Cetirizine HCl (Zyrtec) 10 MG) PO SCH (09:00)
[2020-04-03] MEDS ORDERED: LORATADINE (CLARITIN) 10 MG TAB PO SCH (09:00)
[2020-04-03] MEDS ORDERED: NON-FORMULARY MEDICATION 1 EA EA (Potassium Chloride 10 MEQ) PO SCH (09:00)
[2020-04-03] MEDS ORDERED: NON-FORMULARY MEDICATION 1 EA EA (Escitalopram Oxalate 10 MG) PO SCH (09:00)
[2020-04-03] MEDS ORDERED: MAGNESIUM OXIDE (MAG-OX)400 MG TAB PO SCH (09:00)
--- NOTE | 2020-04-03 10:39 | Anesthesia-General Post-Op ---
MAC Patient Condition Mental Status/LOC: Same as Preop Cardiovascular: Satisfactory Nausea/Vomiting: Absent Respiratory: Satisfactory Pain: Controlled Complications: Absent Post Op Complications Complications None Follow Up Care/Instructions Patient Instructions None needed. Anesthesiology Discharge Order Discharge Order Patient is doing well, no complaints, stable vital signs, no apparent adverse anesthesia problems. No complications reported per nursing. JEIMY WU CRNA Apr 03, 2020 10:39
--- NOTE | 2020-04-03 14:32 | Cardiology Discharge Summary ---
Diagnosis/Chief Complaint Date of Admission 04/02/2020 Date of Discharge 04/03/2020 Admission Diagnosis Typical atrial flutter, paroxysmal atrial fibrillation Final/Discharge Diagnosis Typical atrial flutter, paroxysmal atrial fibrillation, successful typical atrial flutter ablation Chief Complaint/HPI Chief Complaint/HPI This is a 64-year-old lady with typical atrial flutter, paroxysmal atrial fibrillation Discharge Summary Procedures Typical atrial flutter ablation. Implantable loop recorder for long-term surveillance of paroxysmal atrial fibrillation. Discharge Physical Examination Normal cardiovascular examination. Hospital Course Was the Problem List Reviewed?: Yes Unremarkable. Discussion & Recommendations Discussion Discharge took over 30 minutes to complete. I discussed at length with the patient about the procedure and discharge instructions. She will continue all outpatient medications. Follow up appt.: Dr. Redman in 3-4 weeks. Dicharge Diet: Cardiac Diet Activity as Tolerated: Yes Home Medications Reviewed patient Home Medication Reconciliation performed by pharmacy medication reconciliations safe technician and/or nursing. Patients Allergies have been reviewed. Discharge Home Medications: Reviewed and agree with Discharge Medication list on patient's Discharge Instruction sheet Condition at discharge Stable. Instructions to patient/family Discussed with the patient. Shane REDMAN MD Apr 03, 2020 14:32
--- NOTE | 2020-04-03 14:38 | Discharge Inst-Post CATH ---
Discharge Inst-CATH/EP Problems Reviewed?: Yes Final Diagnosis Typical atrial flutter, paroxysmal atrial fibrillation Post Cardiac Cath/EP D/C Inst Follow Up/Plan Discussed with the patient. <b>CARDIAC CATH/EP PROCEDURE DISCHARGE INSTRUCTIONS</b> ACTIVITY * Go Home directly and rest. * Limit activity of the leg (or wrist if it was used) for 7 days including aerobics, swimming, jogging, bicycling, etc. * Restrict stair-climbing for 7 days if possible, if not, climb up with your non-cath leg, then bring together on the same step. * Avoid lifting, pushing, pulling or excessive movement of the affected extremity for 7 days. * Customary sexual activity may be resumed after 2 days-use caution not to use a position that strains or causes pain to the affected extremity. * No driving for 24 hours. * NO SMOKING. * Avoid straining for bowel movements for 7 days. * Gentle walking on level ground is allowed. * Returning to work will depend on the type of procedure and the results. Your doctor will discuss this with you. CALL YOUR DOCTOR FOR ANY OF THE FOLLOWING: *If bleeding from the puncture site occurs- Apply gentle pressure to site with clean cloth and call your doctor or EMS. * If a knot or lump forms under the skin, increases in size, or causes pain. * If bruising appears to be worsening or moving further down your leg instead of disappearing. * Temperature above 101 F. CARE OF YOUR GROIN INCISION; * Bruising or purple discoloration of the skin near the puncture site is common. * You may shower only, no bathtub bathing for 5 days. Be careful to avoid slipping as your leg may feel stiff. * If a closure device was used on your femoral artery, please see the attached guide regarding care of the device and your leg. * Leave dressing on FOR 24 hours. CARE OF YOUR WRIST INCISION; * Bruising or purple discoloration of the skin near the puncture site is common. * You may shower. * DO NOT submerge wrist. * Leave dressing on FOR 24 hours. Shane DONALDSON MD Apr 03, 2020 14:38
== END 2020-04-03 12:40 | disposition home or self-care (01) ==
LOC: CATH 07:05 → ICU 12:32 → CATH 04-03 12:40
PROVIDERS: ATTEND Internal Medicine Interventional Cardiology
DX: I48.4 Atypical atrial flutter (principal); I48.0 Paroxysmal atrial fibrillation; I10 Essential (primary) hypertension; F32.9 Major depressive disorder, single episode, unspecified; I44.1 Atrioventricular block, second degree; E66.9 Obesity, unspecified; Z68.33 Body mass index [BMI] 33.0-33.9, adult; Z79.899 Other long term (current) drug therapy; Z79.01 Long term (current) use of anticoagulants; Z79.82 Long term (current) use of aspirin; Z90.722 Acquired absence of ovaries, bilateral; Z90.710 Acquired absence of both cervix and uterus; Z80.3 Family history of malignant neoplasm of breast; Z82.3 Family history of stroke
CPT/HCPCS: 33285; 80048; 80053; 85027 ×2; 85610; 85730; 87081; 93005 ×2; 93613; 93620; 93653; C1730 ×3; C1764; C1894 ×3; 36415

== ENCOUNTER → 2020-06-01 | Outpatient (CLI) | payer BC ==
[~2020-06-01] MED LIST changes: +CEPH-507 PO; +ESCI10TA55 PO; -HEParin (CATH LAB) 2,000 ML IV ONE; -LIDOCAINE 1% INJ 20 ML 20 ML VIAL ONE; -NS IV 1000 ML 1,000 ML ONE; -PANT40TA3 PO; +PANT40TA52 PO
== END ==
LOC: LABNPT 08:15
PROVIDERS: ATTEND Internal Medicine Interventional Cardiology
DX: Z01.812 Encounter for preprocedural laboratory examination (principal); Z20.828 Contact with and (suspected) exposure to other viral communicable diseases
CPT/HCPCS: 87635

== ENCOUNTER 2020-06-03 09:00 | Day surgery (SDC) | payer BC ==
[~2020-06-03] VITALS: Ht 166 cm; Wt 93.0 kg
[2020-06-03] VITALS (13 sets, daily range): BP systolic 89–149; BP diastolic 51–79
[2020-06-03] MEDS: NS IV 1000 ML 1,000 ML IV SCH ×2 (07:33→18:13)
[2020-06-03 07:43] LABS: HEMOGLOBIN 12.6 g/dL (11.5-16.0); MEAN PLATELET VOLUME 10.9 fL (9.0-12.2); WHITE BLOOD COUNT 6.6 10^3/uL (4.3-11.0)
[2020-06-03 07:54] LABS: PROTHROMBIN TIME PATIENT 13.6 SEC (12.2-14.7)
[2020-06-03 07:57] LABS: BILIRUBIN,TOTAL 0.8 MG/DL (0.1-1.0); CALCIUM 8.8 MG/DL (8.5-10.1); CREATININE SERUM 1.01 MG/DL (0.60-1.30); POTASSIUM 3.2 MMOL/L (3.6-5.0); TOTAL PROTEIN 7.2 GM/DL (6.4-8.2)
[~2020-06-03 09:00] MED LIST changes: +BACITRACIN INJECTION 50,000 UNIT, SODIUM CHLORIDE 0.9% IRRIGATIO 500 ML IR ONE; -CEPH-507 PO; +HEParin (CATH LAB) 1,000 ML IV ONE; +LIDOCAINE 1% INJ 20 ML 20 ML VIAL ONE; +MIDAZOLAM 5 MG/5 ML (VERSED) VIAL ONE; +NS (IVPB) 50 ML ONE; +NS IV 1000 ML 1,000 ML ONE; +ceFAZolin INJECTION 2,000 MG ONE; +fentaNYL INJECTION 100 MCG/2 ML AMP ONE
[2020-06-03] MEDS ORDERED: MIDAZOLAM 5 MG/5 ML (VERSED) VIAL ONE (09:02)
[2020-06-03] MEDS ORDERED: fentaNYL INJECTION 100 MCG/2 ML AMP ONE (09:02)
[2020-06-03] MEDS ORDERED: diphenhydrAMINE 50 MG/ML INJ (BENADRYL) ONE (09:03)
[2020-06-03] MEDS ORDERED: HYDROmorphone 2 MG/ML VIAL (DILAUDID) ONE (09:31)
[2020-06-03] MEDS ORDERED: LIDOCAINE 1% INJ 20 ML 20 ML VIAL ONE (10:00)
[2020-06-03] MEDS ORDERED: NS IV 1000 ML 1,000 ML IV SCH (10:08)
--- NOTE | 2020-06-03 10:08 | Permanent Pacemaker Implant ---
Dual Chamber Pacemaker Implant DUAL CHAMBER PACEMAKER IMPLANTATION: DATE OF PROCEDURE: 06/03/20 PROCEDURE PHYSICIAN: Cleveland Redman MD INDICATION: Symptomatic sinus node dysfunction PREOPERATIVE DIAGNOSIS: Symptomatic sinus node dysfunction POSTOPERATIVE DIAGNOSIS: Symptomatic sinus node dysfunction HISTORY: Symptomatic sinus node dysfunction. Dual-chamber permanent pacemaker was recommended. PROCEDURE PERFORMED: 1. Dual-chamber permanent pacemaker implantation. 2. Fluoroscopy. 3. Central venous access. 4. Implantable loop recorder explantation. ANESTHESIA: Local anesthesia, conscious sedation. COMPLICATIONS: None. ESTIMATED BLOOD LOSS:20 mL. SPECIMENS: None. ORAL ANTICOAGULATION: None. FLUOROSCOPY TIME: 3.35 minutes. FLUOROSCOPY DOSE: 19 mgy. CONTRAST DOSE: None. PROCEDURE DETAILS: The patient is a 64 female and after all of the patients questions were answered, the patient was brought to the EP Lab. The patient's left chest was prepped and draped in sterile fashion. A 2 inch horizontal incision was made 1 cm below the clavicle and dissection carried down to the pectoralis fascia. Using the modified Seldinger technique and under fluoroscopy guidance, the anterior aspect of the left axillary vein was accessed 2 times. The J wires were secured to the drapes with a mosquito clamp. A 7-Moroccan sheath was introduced over one of the J-wires. The RV lead was then inserted. The RV lead was directed across the tricuspid valve to the apical septal portion of the right ventricle. The position was checked in UZBEK and BUTLER views. The screw was deployed and the lead connected to the delphi programmer. Close sensing and pacing thresholds were obtained. Diaphragmatic pacing was ruled out. The lead was secured with 2-0 silk ties to the underlying muscle and fascia. Next, a 7-Moroccan sheath was introduced through the remaining J-wire. An atrial lead was then introduced and guided to the level of the right appendage. The screw was deployed and the lead was connected to the interrogator. Good sensing and pacing thresholds were obtained. Diaphragmatic pacing was ruled out. The leads were secured with 2-0 silk ties to the underlying muscle and fascia. The leads were connected to the device in a hermetic fashion. The device and leads were placed in the pocket. Aggressive irrigation with saline solution was done. The device was secured to the underlying muscle and fascia with a 2-0 silk tie. interrogation of the device revealed good integrity of all the leads and good connections. The wound was then closed using 2 layers. The first layer was interrupted 2-0 absorbable Vicryl suture. The last layer was a single subcuticular layer with 4- 0 Vicryl suture. Half inch Steri-Strips and a small dressing were then applied to the wound. Under sterile conditions, a small incision was made on the sternal aspect of the fourth intercostal space and the Medtronic implantable loop recorder was explanted. The patient tolerated the procedure well and was returned to the recovery room in stable condition with stable vital signs. DEVICE INFORMATION: [employer] IPG W3DR01 April PADILLA, model number W3DR01, serial number [id number] RA LEAD: Medtronic, model number 122112, length 52, serial number [id number]. RV LEAD: Medtronic, model number 901326, serial number [id number]. PER-OPERATIVE DEVICE INTERROGATION: Right atrial capture threshold 1.0 V at 0.4 ms. Impedance 476 ohms. P wave 2.5 mV. RV capture threshold 0.5 V is 0.4 ms, impedance 646 ohms, R-wave 11.5 mV PLAN: The patient transferred to the ICU. We will continue with two more doses of IV antibiotics. We will check a chest x-ray and interrogate the device in the morning. The patient will continue on oral antibiotics for 5 days. Cleveland Redman MD, [facility] Cardiac Electrophysiology Shane REDMAN MD Jun 03, 2020 10:08
--- NOTE | 2020-06-03 10:08 | Cardiac Procedure Note-CS/ASA ---
Pre-Procedure Note Pre-Op Procedure Note H&P Reviewed The H&P was reviewed, patient examined and no changes noted. Date H&P Reviewed: Jun 03, 2020 Time H&P Reviewed: 08:30 Conscious Sedation Pre-Proced Time 08:30 ASA Score 3 For ASA 3 and 4: Consider anesthesia and medical clearance. Also, for patients with a history of failed moderate sedation consider anesthesia. Airway Lungs Heart ASA score ASA 1: a normal healthy patient ASA 2: a patient with a mild systemic disease (mid diabetes, controlled hypertension, obesity ASA 3: a patient with a severe systemic disease that limits activity (angina, COPD, prior Myocardial infarction) ASA 4: a patient with an incapacitating disease that is a constant threat to life (CHF, renal failure) ASA 5: a moribund patient not expected to survive 24 hrs. (ruptured aneurysm) ASA 6: a declared brain- patient whose organs are being harvested. For emergent operations, add the letter E after the classification Mallampati Classification Grade 1 Sedation Plan Analgesia, Amnesia, Plan communicated to team members, Discussed options with patient/fam, Discussed risks with patient/fam The patient is an appropriate candidate to undergo the planned procedure, sedation, and anesthesia. The patient immediately re-assessed prior to indication. Shane DONALDSON MD Jun 03, 2020 10:08
[2020-06-03] MEDS ORDERED: PATIENT MAY USE OWN MEDS, ALL PO SCH (10:15)
--- NOTE | 2020-06-03 11:18 | Diagnostic Imaging Report ---
Portable erect AP chest at 1057 hours. INDICATION: Pacemaker insertion. There are no prior studies available for comparison. FINDINGS: The heart size is within normal limits. There is a left-sided pacemaker in place. The pacer leads seem to be in good position. There is no sign of a pneumothorax on the left. There is a band of increased density extending through the right lung base. This may represent chronic atelectasis and/or scar formation. If previous studies are available, they would be helpful for comparison. There is no sign of failure, pneumonia or pleural effusion. The mediastinum is not widened. The osseous structures are intact. IMPRESSION: 1. There has been insertion of a left-sided pacemaker. The pacer leads seem to be in good position and there is no sign of a pneumothorax. 2. The band of increased density in the right lung base may well be chronic in nature. There is no acute cardiopulmonary abnormality noted otherwise. Dictated by: Dictated on workstation # [id number]
--- NOTE | 2020-06-03 11:22 | NUR ---
1109 - Patient in 508 per manager cath lab staff s/p pacemaker placement with LOOP recorder removal. Report received from CHRISTIANE Hobbs. Patient drowsy, awakens and answers questions appropriately. Patient received sedation during procedure. Patient dressings on left upper chest and near xiphoid process viewed, some blood noted on dressing, bleeding outlined. Patient to have left arm restrictions, patient educated of this and verbalizes understanding. 1113 - Vital signs obtained; temp 36.3C (oral) heart rate 60, SaO2 91% on RA, RR 12, B/P 89/51. Patient placed on 2L per nasal cannula due to drowsiness s/p sedation, SaO2 immediately up to 95% on 2L.
--- NOTE | 2020-06-03 11:38 | NUR ---
1138 - Patient resting comfortably in bed. NS infusing via IV in patient's left AC space. Patient denies any needs or pain. Left upper chest dressing remains unchanged from previous markings, dressing near xiphoid process has blood noted outside lines, pressure dressing applied over dressing per carpenter labor supervisor staff during report. Sling placed on patient's left arm. 1150 - Telemetry applied, monitoring and evaluation advisor notified for placement in system. Patient educated on monitoring measures, use of sling for left arm restrictions. 1155 - Report given to CHRISTIANE Zhang. No other needs at this time, care transferred.
[2020-06-03] MEDS ORDERED: ceFAZolin INJECTION 1,000 MG ONE ×2 (13:14→21:17)
[2020-06-03] MEDS ORDERED: KCL 20 MEQ TAB (K-DUR) PO NR (13:15)
[2020-06-03] MEDS: ceFAZolin INJECTION 1,000 MG in WATER (STERILE) FOR INJECTION 10 ML IV SCH ×2 (13:21→21:20)
[2020-06-03] MEDS ORDERED: POTA10CA43 PO (14:28)
--- NOTE | 2020-06-03 15:09 | NUR ---
pt assisted pt to bathroom. pt tolerated well.
[2020-06-03] MEDS ORDERED: fentaNYL INJECTION 100 MCG/2 ML AMP IVP PRN (18:15)
[2020-06-03] MEDS ORDERED: ACETAMINOPHEN 325 MG TABLET ONE (18:16)
[2020-06-03] MEDS: ACETAMINOPHEN 325 MG TABLET PO PRN (18:18)
[2020-06-03] MEDS: POTASSIUM CHLORIDE ER 10 MEQ CAPSULE PO SCH (20:31)
[2020-06-03] MEDS: APIXABAN 5 MG (ELIQUIS) TABLET PO SCH (20:32)
[2020-06-04] MEDS: ACETAMINOPHEN 325 MG TABLET PO PRN (02:57)
[2020-06-04 02:58] LABS: HEMOGLOBIN 11.2 g/dL (11.5-16.0); WHITE BLOOD COUNT 6.5 10^3/uL (4.3-11.0)
[2020-06-04] MEDS: NS IV 1000 ML 1,000 ML IV SCH (02:58)
[2020-06-04 03:00] VITALS: BP 124/76
[2020-06-04 03:04] LABS: ALBUMIN 3.3 GM/DL (3.2-4.5); CHLORIDE 103 MMOL/L (98-107); POTASSIUM 3.4 MMOL/L (3.6-5.0); SODIUM 137 MMOL/L (135-145)
[2020-06-04 03:06] LABS: GLUCOSE 104 MG/DL (70-105)
[2020-06-04 03:07] LABS: TOTAL PROTEIN 5.7 GM/DL (6.4-8.2)
[2020-06-04 03:08] LABS: BILIRUBIN,TOTAL 0.4 MG/DL (0.1-1.0); CARBON DIOXIDE 26 MMOL/L (21-32)
[2020-06-04 03:10] LABS: ALKALINE PHOSPHATASE 65 U/L (40-136); CREATININE SERUM 0.93 MG/DL (0.60-1.30); GFR ESTIMATED > 60
[2020-06-04 03:11] LABS: BUN/CREATININE RATIO 16
[2020-06-04 03:13] LABS: ALANINE AMINOTRANSFERASE 13 U/L (0-55)
[2020-06-04] MEDS ORDERED: ceFAZolin INJECTION 1,000 MG ONE (05:17)
[2020-06-04] MEDS ORDERED: WATER (STERILE) FOR INJECTION 10 ML ONE (05:17)
[2020-06-04] MEDS: ceFAZolin INJECTION 1,000 MG in WATER (STERILE) FOR INJECTION 10 ML IV SCH (05:24)
[2020-06-04] MEDS: APIXABAN 5 MG (ELIQUIS) TABLET PO SCH (07:34)
[2020-06-04] MEDS: POTASSIUM CHLORIDE ER 10 MEQ CAPSULE PO SCH (07:35)
[2020-06-04 08:00] VITALS: BP 147/79
[2020-06-04] MEDS ORDERED: ESCITALOPRAM 10 MG TABLET PO SCH (09:00)
[2020-06-04] MEDS ORDERED: NON-FORMULARY MEDICATION 1 EA EA (Cetirizine HCl (Zyrtec) 10 MG) PO SCH (09:00)
[2020-06-04] MEDS ORDERED: NON-FORMULARY MEDICATION 1 EA EA (Escitalopram Oxalate 10 MG) PO SCH (09:00)
[2020-06-04] MEDS ORDERED: HYDROCHLOROTHIAZIDE 25 MG (HCTZ) TAB PO SCH (09:00)
[2020-06-04] MEDS ORDERED: lisINopril 5 MG (PRINIVIL) TABLET PO SCH (09:00)
[2020-06-04] MEDS ORDERED: PANTOPRAZOLE 40 MG (PROTONIX) TAB PO SCH (09:00)
[2020-06-04] MEDS ORDERED: NON-FORMULARY MEDICATION 1 EA EA (Potassium Chloride 10 MEQ) PO SCH (09:00)
[2020-06-04] MEDS ORDERED: ceTIRizine 10 MG (ZyrTEC) TAB NON-FORMULARY PO SCH (09:00)
[2020-06-04] MEDS ORDERED: CEPH-507 PO ×2 (11:36→11:45)
[2020-06-04 12:13] VITALS: BP 125/80
--- NOTE | 2020-06-04 12:15 | NUR ---
LULÚ BAZZI demonstrates understanding of discharge instructions and accurately returns instructions upon questioning. Copy of Post-Discharge Instructions and Medication Discharge Instructions given to patient. LULÚ BAZZI is able to manage continuing needs after discharge. Patients belongings returned to patient. Skin dry and intact; no breakdown noted. Patient discharged from [facility]- on 06/04/20 at 1215 . LULÚ BAZZI left floor via wheelchair, accompanied by PCT.
--- NOTE | 2020-06-04 12:56 | Cardiology Discharge Summary ---
Diagnosis/Chief Complaint Date of Admission 06/03/2020 Date of Discharge 06/04/2020 Admission Diagnosis symptomatic severe sinus node dysfunction, transient complete heart block Final/Discharge Diagnosis symptomatic severe sinus node dysfunction, transient complete heart block Chief Complaint/HPI Chief Complaint/HPI 64-year-old lady with symptomatic severe sinus node dysfunction, transient complete heart block Discharge Summary Procedures 1. Successful dual-chamber permanent pacemaker implantation. 2. Implantable loop recorder explantation Discharge Physical Examination normal Hospital Course Was the Problem List Reviewed?: Yes unremarkable. Discussion & Recommendations Discussion discharge instructions were discussed at length with the patient. Follow up appt.: wound check in one week. Dr. Redman in one month. Dicharge Diet: Cardiac Diet Activity as Tolerated: Yes Home Medications Reviewed patient Home Medication Reconciliation performed by pharmacy medication reconciliations orthodontic technician assistant and/or nursing. Patients Allergies have been reviewed. Discharge Home Medications: Reviewed and agree with Discharge Medication list on patient's Discharge Instruction sheet Condition at discharge stable. Instructions to patient/family discussed at length with the patient. Shane REDMAN MD Jun 04, 2020 12:56
== END 2020-06-04 12:15 | disposition home or self-care (01) ==
LOC: CATH 09:00 → CSD 11:09 → CATH 06-04 12:15
PROVIDERS: ATTEND Internal Medicine Interventional Cardiology
DX: I49.5 Sick sinus syndrome (principal); I48.0 Paroxysmal atrial fibrillation; I10 Essential (primary) hypertension; I08.2 Rheumatic disorders of both aortic and tricuspid valves; I48.3 Typical atrial flutter; R55 Syncope and collapse; I27.20 Pulmonary hypertension, unspecified; M79.89 Other specified soft tissue disorders; Z79.01 Long term (current) use of anticoagulants; Z79.899 Other long term (current) drug therapy; Z20.828 Contact with and (suspected) exposure to other viral communicable diseases; Z11.2 Encounter for screening for other bacterial diseases
CPT/HCPCS: 33208; 33286; 71045; 80053 ×2; 85027 ×2; 85610; 85730; 87081; 93005; C1785; C1898 ×2; U0002; 36415; 87635

== ENCOUNTER → 2022-03-16 | Outpatient (CLI) | payer BC ==
[~2022-03-16] MED LIST changes: -BACITRACIN INJECTION 50,000 UNIT, SODIUM CHLORIDE 0.9% IRRIGATIO 500 ML IR ONE; +CEPH-507 PO; +ESCI-2 PO; -ESCI10TA55 PO; -HEParin (CATH LAB) 1,000 ML IV ONE; -LIDOCAINE 1% INJ 20 ML 20 ML VIAL ONE; -LISI-556 PO; +LISI5TAB20 PO; -MIDAZOLAM 5 MG/5 ML (VERSED) VIAL ONE; -NS (IVPB) 50 ML ONE; -NS IV 1000 ML 1,000 ML ONE; -ceFAZolin INJECTION 2,000 MG ONE; -fentaNYL INJECTION 100 MCG/2 ML AMP ONE
--- NOTE | 2022-03-16 17:45 | Diagnostic Imaging Report ---
3-D digital mammogram bilateral screening with CAD. This study was compared to the prior exams of 02/28/2021, 05/23/2019 and 05/31/2018. At this time there are no current complaints. The breasts are predominantly fatty. In the interval since the prior study a few microcalcifications have developed in the medial retroareolar region of the right breast. These micro-calcifications do not have a particularly flattening appearance. Even so, I would recommend that a compression/magnification of these microcalcifications be obtained in the ML and CC projections for further study. Also, in the mid medial aspect of the breast a few other microcalcifications have developed. These are most likely benign but I would recommend that they be compressed and magnified in the CC and MLO projections as well. The overall appearance of breasts has not changed significantly otherwise. There is no primary or secondary sign of malignancy noted. The left-sided pacemaker battery pack continues to overlie the left pectoralis muscle. IMPRESSION: Additional mammographic views of the right breast would be recommended for further study. ACR BI-RADS Category 0: Incomplete. (Needs additional imaging evaluation). Result letter will be mailed to the patient. Note: At least 10% of breast cancer is not imaged by mammography. Dictated by: Dictated on workstation # [id number]
== END ==
LOC: RAD 13:23
PROVIDERS: ATTEND Surgery
DX: Z12.31 Encounter for screening mammogram for malignant neoplasm of breast (principal)
CPT/HCPCS: 77063; 77067

== ENCOUNTER → 2022-03-23 | Outpatient (CLI) | payer MEDICARE, OTHER ==
--- NOTE | 2022-03-24 08:58 | Diagnostic Imaging Report ---
Indication: Right breast calcifications. Patient presents for additional views. Unilateral right 2-D and 3-D diagnostic mammography was performed. This included magnification CC and ML views as well as conventional 90 degree lateral views. Calcifications in the retroareolar and slightly medial right breast as well as calcifications in the mid portion of the right breast medially appears to be primarily punctate and round. No tight clustering is seen. No there is no pleomorphism or soft tissue mass identified. These overall have a fairly benign appearance. IMPRESSION: BI-RADS Category 3 Benign appearing calcifications in the right breast, as described. Even so, follow-up right mammogram in 6 months is recommended to confirm stability. ACR BI-RADS Category 3: Probably benign findings. Result letter will be mailed to the patient. Note: At least 10% of breast cancer is not imaged by mammography. Dictated by: Dictated on workstation # [id number]
== END ==
LOC: RAD 13:15
PROVIDERS: ATTEND Surgery
DX: R92.1 Mammographic calcification found on diagnostic imaging of breast (principal)
CPT/HCPCS: 77065; G0279

== ENCOUNTER → 2022-09-25 | Outpatient (CLI) | payer MEDICARE, OTHER ==
[~2022-09-25] MED LIST changes: -POTA10CA43 PO; +POTA10CA44 PO
--- NOTE | 2022-09-25 14:28 | Diagnostic Imaging Report ---
INDICATION: Six-month followup right breast calcifications. COMPARISON: Correlation is made with the prior mammograms from 03/16/2022 and 02/28/2021. TECHNIQUE: Unilateral right 2D and 3D diagnostic mammography was performed with CAD. FINDINGS: Scattered fibroglandular densities are identified in the right breast. Calcifications in the retroareolar as well as medial right breast mid depth appear stable. These appear to be primarily punctate and likely benign. Benign nodules in the right breast are stable. No spiculated mass is detected. The right axilla is unremarkable. IMPRESSION: Stable right breast calcifications. An additional six-month followup is recommended to show continued stability. ACR BI-RADS Category 3: Probably benign findings. Result letter will be mailed to the patient. Note: At least 10% of breast cancer is not imaged by mammography. Dictated by: Dictated on workstation # [id number]
== END ==
LOC: RAD 12:29
PROVIDERS: ATTEND Surgery
DX: R92.1 Mammographic calcification found on diagnostic imaging of breast (principal)
CPT/HCPCS: 77065; G0279

== ENCOUNTER → 2023-01-01 | Outpatient (CLI) | payer MEDICARE, OTHER | LOC: CARD 09:07 | PROVIDERS: ATTEND Internal Medicine Cardiovascular Disease | DX: I48.0 Paroxysmal atrial fibrillation (principal) | CPT/HCPCS: 93306 ==

== ENCOUNTER → 2023-04-18 | Outpatient (CLI) | payer MEDICARE, OTHER ==
[~2023-04-18] MED LIST changes: -POTA10CA44 PO; +POTA10CA84 PO
--- NOTE | 2023-04-18 18:04 | Diagnostic Imaging Report ---
INDICATION: Routine screening. COMPARISON: Prior mammograms from 03/16/2022 and 09/25/2022. EXAMINATION: 2D and 3D bilateral screening mammography was performed with CAD. The current study was also evaluated with a Computer Aided Detection (CAD) system. FINDINGS: Scattered fibroglandular densities are identified, bilaterally. Right breast calcifications appear stable. No new mass or malignant-appearing microcalcifications are identified. Left axilla contains a pacemaker battery pack. IMPRESSION: No mammographic features suspicious for malignancy are identified. ACR BI-RADS Category 2: Benign findings. Result letter will be mailed to the patient. Note: At least 10% of breast cancer is not imaged by mammography. Dictated by: Dictated on workstation # [id number]
== END ==
LOC: RAD 09:44
PROVIDERS: ATTEND Nurse Practitioner
DX: Z12.31 Encounter for screening mammogram for malignant neoplasm of breast (principal)
CPT/HCPCS: 77063; 77067